=== PATIENT | male | born 1935 | race Caucasian/White ===

== ENCOUNTER 2022-09-23 11:16 | Observation (INO) | payer MEDICARE ==
[2022-09-23 11:53] VITALS: BMI 26.6
[2022-09-23] MEDS ORDERED: Acetaminophen 325 MG TAB PO PRN (11:55)
[2022-09-23] MEDS ORDERED: Ondansetron ODT 4 MG TAB PO PRN (11:55)
[2022-09-23] MEDS ORDERED: Ondansetron PF 4 MG/2 ML Vial IVP PRN (11:55)
[2022-09-23] MEDS ORDERED: FLU VACC QS2022-23(65YR UP)/PF 240 MCG/0.7 ML SYRINGE IM ONE (12:15)
[2022-09-23] MEDS ORDERED: HYDROcodone/Acetaminophen 10/325 mg Tablet PO PRN ×2 (17:01)
[2022-09-23 18:46] LABS: SARS-CoV-2 NAA Rapid Test Not Detected (NotDetected)
[2022-09-23] MEDS ORDERED: Terazosin HCl 5 MG CAP PO SCH (21:00)
[2022-09-23] MEDS ORDERED: Rosuvastatin 20 MG TAB PO SCH (21:00)
[2022-09-23] MEDS: Carvedilol 6.25 MG TAB PO SCH (21:33)
[2022-09-23 22:31] LABS: Hemoglobin A1c 5.3 % (4.0-6.0)
[2022-09-23] MEDS ORDERED: Furosemide 20 MG TAB PO SCH (23:59)
[2022-09-24 05:15] LABS: #Basophils 0.1 10x3/uL (0.0-0.2); #Eosinphils 0.4 10x3/uL (0.0-0.5); #Monocytes 1.3 10x3/uL (0.0-1.1); #Neutrophils 7.8 10x3/uL (1.5-8.4); %Basophils 0.6 % (0.0-2.0); %Eosinophils 3.3 % (0.0-6.0); %Lymphocytes 11.7 % (18.0-47.0); %Monocytes 11.6 % (0.0-10.0); %Neutrophils 72.5 % (40.0-75.0); Mean Corpuscular HGB CONC 31.6 g/dL (32.0-36.0); Mean Corpuscular Hemoglobin 29.9 pg (27.0-33.0); Mean Corpuscular Volume 94.3 fl (81.2-95.1); Mean Platelet Volume 11.3 fl (7.4-10.4); Platelet Count 248 10x3/uL (150-450); RBC Distribution Width 14.2 % (11.5-14.5); Red Blood Cell (RBC) Count 3.35 10x6/uL (4.32-5.72); White Blood Cell (WBC) Count 10.8 10x3/uL (3.5-10.5)
[2022-09-24 05:30] LABS: Anion Gap 15 mmol/L (10-20); BUN (Urea Nitrogen) 17 mg/dL (8.4-25.7); Calc. Creatinine Clearance 53 mL/min (70-130); Calcium 8.8 mg/dL (7.8-10.44); Carbon Dioxide 22 mmol/L (23-31); Cardiac Risk 3.7 (Less than 4.5); Chloride 107 mmol/L (98-107); Cholesterol 99 mg/dl (< 200 Desired); Estimated GFR 59; Glucose 116 mg/dL (83-110); HDL Cholesterol 27 mg/dL (>60 Neg Risk); LDL Cholesterol, Calculated 54 mg/dL; Potassium 4.3 mmol/L (3.5-5.1); Sodium 140 mmol/L (136-145); Triglycerides 91 mg/dL (Less than 150)
[2022-09-24 08:00] VITALS: TEMP 98.6
[2022-09-24] MEDS ORDERED: Furosemide 20 MG TAB PO SCH (09:00)
[2022-09-24] MEDS ORDERED: Amiodarone 200 MG TAB PO SCH (09:00)
[2022-09-24] MEDS ORDERED: Aspirin 81 mg Enteric Coated Tablet PO SCH (09:00)
[2022-09-24] MEDS: Carvedilol 6.25 MG TAB PO SCH (09:01)
[2022-09-24 09:04] VITALS: BP 113/62
[2022-09-25] MEDS ORDERED: Furosemide 40 MG TAB PO SCH (09:00)
== END 2022-09-24 11:45 | disposition home or self-care (01) ==
LOC: CSHTELE 11:16 → INTOOBSV 11:16
PROVIDERS: ADMIT Internal Medicine; ATTEND Internal Medicine
DX: G45.9 Transient cerebral ischemic attack, unspecified (principal); I11.0 Hypertensive heart disease with heart failure; I50.20 Unspecified systolic (congestive) heart failure; I25.10 Atherosclerotic heart disease of native coronary artery without angina pectoris; R29.90 Unspecified symptoms and signs involving the nervous system; N17.9 Acute kidney failure, unspecified; K21.9 Gastro-esophageal reflux disease without esophagitis; I48.20 Chronic atrial fibrillation, unspecified; E78.5 Hyperlipidemia, unspecified; R53.83 Other fatigue; Z79.82 Long term (current) use of aspirin; Z79.899 Other long term (current) drug therapy; Z86.73 Personal history of transient ischemic attack (TIA), and cerebral infarction without residual deficits; Z20.822 Contact with and (suspected) exposure to COVID-19
CPT/HCPCS: 70551; 80048; 80061; 83036; 83735; 84443; 85025; 93880; 94760 ×2; G0378 ×2; U0002; 36415